=== PATIENT | male | born 1995 | race Caucasian/White ===

== ENCOUNTER 2017-06-28 23:31 | Emergency (ER) | payer BC ==
[2017-06-28 23:36] VITALS: BP 157/102
[2017-06-28] MEDS ORDERED: DIPHTH/TETANUS/ACEL. PERTUSSIS IM ONLY ONE (23:40)
--- NOTE | 2017-06-28 23:51 | ER Report ---
History and Physical Time Seen By MD: 23:34 HPI/ROS CHIEF COMPLAINT: Thumb laceration HISTORY OF PRESENT ILLNESS: 22-year-old male presents ambulatory to the ER. Complaining of laceration to his left thumb with a glass bottle. Patient's last tetanus shots greater than 10 years old. Allergies: Coded Allergies: No Known Drug Allergies (Unverified , 06/28/17) Home Meds No Active Prescriptions or Reported Meds Reviewed Nurses Notes: Yes Old Medical Records Reviewed: Yes Constitutional Vital Sign - Last 24 Hours 06/28/17 23:36 Temp 98.0 Pulse 112 Resp 16 B/P (MAP) 157/102 Pulse Ox 95 O2 Delivery Room Air Physical Exam General appearance: Alert no distress. Respiratory: Chest is non tender, lungs are clear to auscultation. Cardiac: Regular rate and rhythm Extremities: Examination of the left hand reveals a curvilinear laceration to the thenar eminence deep into the muscle. Distal neurovascular function appears intact. All tendon function appears intact DIFFERENTIAL DIAGNOSIS: After history and physical exam differential diagnosis was considered for laceration, foreign body, tendon injury, joint penetration Medical Decision Making ED Course/Re-evaluation ED Course Procedure: Laceration repair. Verbal consent was obtained from the patient. The 3.0 cm laceration on the left thenar eminence was anesthetized in the usual fashion. The wound was scrubbed, draped and explored to its base with a gloved finger. There was laceration into the muscle belly No tendon injury was identified. The wound was repaired with 5-0 Prolene 4 sutures. The wound repair was simple. The procedure was performed by myself. A pressure dressing was applied. Wound care was discussed. Suture removal will be in 2 weeks. Patient's tetanus status was updated. Decision to Disposition Date: Jun 29, 2017 Decision to Disposition Time: 00:24 Depart Departure Latest Vital Signs Vital Signs Date Time Temp Pulse Resp B/P (MAP) Pulse Ox O2 Delivery O2 Flow Rate FiO2 06/28/17 23:36 98.0 112 16 157/102 95 Room Air Impression: Primary Impression: Laceration of left thumb Condition: Improved Disposition: HOME OR SELF-CARE New Scripts No Active Prescriptions or Reported Meds Patient Instructions: Hand Laceration Additional Instructions: Perform daily wound care Watch for signs of infection Keep wound covered with a bandage Have stitches removed in 14 days Problem Qualifiers Primary Impression: Laceration of left thumb Encounter type: initial encounter Damage to nail status: without damage Foreign body presence: without foreign body Qualified Codes: S61.012A - Laceration without foreign body of left thumb without damage to nail, initial encounter EDILIA MOREL DO Jun 28, 2017 23:51
== END 2017-06-29 00:37 | disposition home or self-care (01) ==
LOC: ER 23:37
DX: S61.012A Laceration without foreign body of left thumb without damage to nail, initial encounter (principal)
CPT/HCPCS: 90471; 90715; 99283